=== PATIENT | female | born 1975 ===

== ENCOUNTER → 2024-08-01 13:53 | Outpatient (CLI) | payer OTHER, SELFPAY ==
--- NOTE | 2024-08-14 12:41 | DIET.OUTPTC ---
Dietary Outpatient Consult Consult Date:08/01/24 Assessment:?49 y F referred to dietitian for Gastric ulcer, unspecified as acute or chronic, without hemorrhage or perforation Pt reports at recent GI visit they told her they suspect she has Crohn's. Would like more information on Crohn's regarding nutritional management and GI health. Intolerant to yeasty breads like pizza crust, chili peppers, tomatoes, too much lettuce, and cabbage. Results in constipation, gas, bloating, abd distention and pain. Was told by doctor to avoid nuts and seeds GI symptoms: No N/V/D/C in last 3 months d/t focusing on avoiding triggers, has BM daily type 3-4. Acid reflux if eating too fast. Diet Recall: 10-11am- corn tortillas (4-8) and eggs OR homemade fruit smoothie and granola without nuts/seeds OR chk strips with 2 cups coffee and 1 cup juice D-meat or chk with veg and pasta/rice Fluids: water, adequate hydration Ht: 5 ft 2 in?? Wt:?164 lb? BMI:?30 Nutrition Diagnosis:? Food and nutrition related knowledge deficit r/t new diagnosis aeb pt's providers suspect Crohn's disease, pt seeking information for nutritional management for GI conditions Interventions:? Discussed and provided appropriate resources on the following: -Reviewed GI hx and food intolerances -Discussed nutrition management in Crohn's for if Crohn's is dx -Discussed nutrition management for acid reflux -Meeting fiber needs daily, as tolerated Goals: -Additional protein-fiber midday snack to avoid fast eating later -Symptom monitoring journal Monitoring/Evaluations:? F/u in 4-6 weeks Electronically Signed by: Betty Frank Clinical Dietitian [address] [id number]
== END ==
PROVIDERS: PCP Physician Assistant
DX: K25.9 Gastric ulcer, unspecified as acute or chronic, without hemorrhage or perforation (principal); Z71.3 Dietary counseling and surveillance; Z68.30 Body mass index [BMI] 30.0-30.9, adult
CPT/HCPCS: 97802